=== PATIENT | female | born 1965 | race African-American/Black ===

== ENCOUNTER 2021-05-17 11:57 | Emergency (ER) | payer MEDICAID, OTHER ==
[~2021-05-17] VITALS: Ht 180.3 cm; Wt 85.5 kg
[2021-05-17] MEDS ORDERED: LOSA50TA37 PO (12:24)
[2021-05-17] MEDS ORDERED: OMEP20 PO (12:26)
[2021-05-17] MEDS ORDERED: CHLO3800 TP (12:26)
[2021-05-17 12:46] LABS: BASOPHILS % (AUTO) 0.6 % (0.0-2.0); EOSINOPHILS % (AUTO) 1.3 % (1.0-6.0); HEMATOCRIT 35.1 % (36-46); HEMOGLOBIN 11.8 g/dL (12.0-16.0); LYMPHOCYTES # (AUTO) 2.2 K/uL (1.0-4.8); LYMPHOCYTES % (AUTO) 21.9 % (22.0-44.0); MEAN CORPUSCULAR HEMOGLOBIN 28.8 pg (26.0-34.0); MEAN CORPUSCULAR HGB CONC 33.7 G/dL (31.0-37.0); MEAN CORPUSCULAR VOLUME 85 fL (80-100); MONOCYTES # (AUTO) 0.9 K/uL (0.1-1.0); MONOCYTES % (AUTO) 8.7 % (2.0-9.0); NEUTROPHILS # (AUTO) 6.7 K/uL (1.8-7.7); NEUTROPHILS % (AUTO) 67.5 % (40.0-70.0); PLATELET COUNT (AUTO) 341 K/uL (150-450); RED BLOOD CELL COUNT(AUTO) 4.11 MIL/uL (4.00-5.20)
[2021-05-17 13:02] LABS: ALANINE AMINOTRANSFERASE 25 U/L (12-78); ALBUMIN 2.9 g/dL (3.4-5.0); ALKALINE PHOSPHATASE 95 U/L (46-116); ANION GAP 8 mmol/L (8-16); ASPARTATE AMINOTRANSFERASE 45 U/L (15-37); BILIRUBIN,TOTAL 0.4 mg/dL (0.1-1.0); CARBON DIOXIDE 28 mmol/L (22-29); CHLORIDE 81 mmol/L (98-107); CREATININE 0.69 mg/dL (0.60-1.30); GLOMERULAR FILTR. RATE CALC > 60 mL/min (>60); GLUCOSE,RANDOM 106 mg/dL (70-110); TOTAL PROTEIN, SERUM 6.8 g/dL (6.4-8.2); UREA NITROGEN, BLOOD 5 mg/dL (7-18)
[2021-05-17 13:07] LABS: SODIUM SERUM 117 mmol/L (136-145)
[2021-05-17 13:08] LABS: POTASSIUM 2.1 mmol/L (3.5-5.1)
[2021-05-17 14:04] LABS: AMPHET/METH SCREEN,URINE NEGATIVE (NEGATIVE); BARBITURATE SCREEN, URINE NEGATIVE (NEGATIVE); BENZODIAZEPINES SCREEN,URINE NEGATIVE (NEGATIVE); CANNABINOID SCREEN,URINE NEGATIVE (NEGATIVE); COCAINE SCREEN,URINE NEGATIVE (NEGATIVE); METHADONE SCREEN, URINE NEGATIVE (NEGATIVE); OPIATE SCREEN,URINE NEGATIVE (NEGATIVE)
[2021-05-17 14:05] LABS: PHENCYCLIDINE SCREEN,URINE NEGATIVE (NEGATIVE)
[2021-05-17] MEDS ORDERED: IOHEXOL 350 MG/ML 100 ML VIAL ONE (14:18)
[2021-05-17] MEDS ORDERED: SODIUM CHLORIDE 0.9% 100 ML ONE (14:18)
[2021-05-17 14:29] LABS: ANION GAP 8 mmol/L (8-16); CALCIUM, TOTAL 9.1 mg/dL (8.8-10.5); CARBON DIOXIDE 27 mmol/L (22-29); CHLORIDE 84 mmol/L (98-107); CREATININE 0.64 mg/dL (0.60-1.30); GLOMERULAR FILTR. RATE CALC > 60 mL/min (>60); GLUCOSE,RANDOM 97 mg/dL (70-110); UREA NITROGEN, BLOOD 4 mg/dL (7-18)
[2021-05-17 14:36] LABS: SODIUM SERUM 119 mmol/L (136-145)
[2021-05-17 14:37] LABS: POTASSIUM 2.1 mmol/L (3.5-5.1)
[2021-05-17] MEDS ORDERED: SODIUM CHLORIDE 0.9% 1,000 ML IV ONE (14:45)
[2021-05-17] MEDS: POTASSIUM CHLORIDE 20 MEQ ER TABLET PO PRN ×2 (14:46→15:03)
[2021-05-17] MEDS: POTASSIUM CHL 10 MEQ/WATER 50 ML IV PRN ×4 (14:46→18:10)
[2021-05-17 15:15] LABS: COVID AG,FIA SOURCE NASOPHARYNGEAL
[2021-05-17] MEDS ORDERED: PIPERACILLIN/TAZO 3.375 GM/D5W 50 ML IV ONE (15:30)
[2021-05-17 21:48] VITALS: BP 130/71
== END 2021-05-17 21:58 | disposition short-term general hospital (02) ==
LOC: EMS 12:02
DX: L03.211 Cellulitis of face (principal); E87.6 Hypokalemia; E87.1 Hypo-osmolality and hyponatremia; R25.1 Tremor, unspecified; I10 Essential (primary) hypertension; F17.210 Nicotine dependence, cigarettes, uncomplicated; Z79.899 Other long term (current) drug therapy; Z20.822 Contact with and (suspected) exposure to COVID-19
CPT/HCPCS: 36415; 70487; 80048; 80053; 80307; 84132; 85025; 87426; 93005; 96365; 71045; 96366; 99291; G0480; J2543; J3480; J7030; J7050; Q9967

== ENCOUNTER 2021-06-10 17:28 | Emergency (ER) | payer OTHER ==
[~2021-06-10] VITALS: Ht 180.3 cm; Wt 77.3 kg
[~2021-06-10 17:28] MED LIST: CHLO3800 TP; LOSA-382 PO; OMEP20 PO
[2021-06-10 17:52] VITALS: BP 131/89
[2021-06-10] MEDS ORDERED: TRIAMCINOLONE 0.1% 15 GM CREAM TP ONE (21:00)
== END 2021-06-10 21:48 | disposition home or self-care (01) ==
LOC: EMS 17:31
DX: S30.864A Insect bite (nonvenomous) of vagina and vulva, initial encounter (principal); I10 Essential (primary) hypertension; N81.10 Cystocele, unspecified; F17.210 Nicotine dependence, cigarettes, uncomplicated; W57.XXXA Bitten or stung by nonvenomous insect and other nonvenomous arthropods, initial encounter; Y93.89 Activity, other specified; Y92.89 Other specified places as the place of occurrence of the external cause; Y99.8 Other external cause status
CPT/HCPCS: 99283

== ENCOUNTER 2021-11-09 08:50 | Emergency (ER) | payer OTHER ==
[~2021-11-09] VITALS: Ht 177.8 cm; Wt 70.5 kg
[2021-11-09] MEDS ORDERED: RINGERS SOLUTION,LACTATED 1,000 ML IV ONE (10:45)
[2021-11-09] MEDS ORDERED: ACETAMINOPHEN 500 MG TABLET PO ONE (11:15)
[2021-11-09 11:42] VITALS: BP 120/65
[2021-11-09 11:45] LABS: BASOPHILS % (AUTO) 0.3 % (0.0-2.0); EOSINOPHILS % (AUTO) 0.7 % (1.0-6.0); HEMATOCRIT 39.3 % (36-46); LYMPHOCYTES # (AUTO) 0.9 K/uL (1.0-4.8); LYMPHOCYTES % (AUTO) 11.6 % (22.0-44.0); MEAN CORPUSCULAR HEMOGLOBIN 29.2 pg (26.0-34.0); MEAN CORPUSCULAR HGB CONC 33.1 G/dL (31.0-37.0); MEAN CORPUSCULAR VOLUME 88 fL (80-100); MONOCYTES # (AUTO) 0.4 K/uL (0.1-1.0); MONOCYTES % (AUTO) 4.9 % (2.0-9.0); NEUTROPHILS # (AUTO) 6.2 K/uL (1.8-7.7); NEUTROPHILS % (AUTO) 82.5 % (40.0-70.0); PLATELET COUNT (AUTO) 249 K/uL (150-450); RED BLOOD CELL COUNT(AUTO) 4.45 MIL/uL (4.00-5.20); RED CELL DISTRIBUTION WIDTH 14.8 % (11.5-14.5)
[2021-11-09 11:55] LABS: ANION GAP 11 mmol/L (8-16); CALCIUM, TOTAL 9.1 mg/dL (8.8-10.5); CARBON DIOXIDE 25 mmol/L (22-29); CHLORIDE 103 mmol/L (98-107); CREATININE 0.98 mg/dL (0.60-1.30); GLOMERULAR FILTR. RATE CALC > 60 mL/min (>60); GLUCOSE,RANDOM 194 mg/dL (70-110); POTASSIUM 3.3 mmol/L (3.5-5.1); SODIUM SERUM 139 mmol/L (136-145); UREA NITROGEN, BLOOD 19 mg/dL (7-18)
[2021-11-09 12:09] LABS: HCG,QUANTITATIVE 2 mIU/mL (0-6)
== END 2021-11-09 12:45 | disposition home or self-care (01) ==
LOC: EMS 08:50
DX: T46.5X1A Poisoning by other antihypertensive drugs, accidental (unintentional), initial encounter (principal); E87.6 Hypokalemia; R42 Dizziness and giddiness; I10 Essential (primary) hypertension; F17.210 Nicotine dependence, cigarettes, uncomplicated; Z79.899 Other long term (current) drug therapy; Y92.89 Other specified places as the place of occurrence of the external cause
CPT/HCPCS: 36415; 80048; 84702; 85025; 93005; 96360; 99284; J7120

== ENCOUNTER 2022-01-08 19:21 | Emergency (ER) | payer OTHER ==
[~2022-01-08] VITALS: Ht 180.3 cm; Wt 77.3 kg
[2022-01-08] MEDS ORDERED: AMOX500C2 PO (22:32)
[2022-01-08] MEDS ORDERED: IBUP-2070 PO (22:32)
[2022-01-08 22:57] VITALS: BP 132/88
== END 2022-01-09 00:47 | disposition home or self-care (01) ==
LOC: EMS 19:21
DX: H66.001 Acute suppurative otitis media without spontaneous rupture of ear drum, right ear (principal); I10 Essential (primary) hypertension; F17.210 Nicotine dependence, cigarettes, uncomplicated; Z79.899 Other long term (current) drug therapy
CPT/HCPCS: 99283; Z7502

== ENCOUNTER 2022-01-16 14:22 | Emergency (ER) | payer OTHER ==
[~2022-01-16] VITALS: Ht 180.3 cm; Wt 77.3 kg
[~2022-01-16 14:22] MED LIST changes: +AMOX500C2 PO; +IBUP-2070 PO
[2022-01-16 14:31] VITALS: BP 122/60
[2022-01-16] MEDS ORDERED: PRAZ1 PO (14:40)
[2022-01-16] MEDS ORDERED: CARB1TAB33 PO (14:40)
[2022-01-16] MEDS ORDERED: LIDO1ADH83 TP (14:40)
[2022-01-16] MEDS ORDERED: HYDR25TA PO (14:40)
[2022-01-16] MEDS ORDERED: CLON-592 PO (14:40)
[2022-01-16] MEDS ORDERED: ALBU8.5H8 IH (14:40)
[2022-01-16] MEDS ORDERED: ARIP30TA PO (14:40)
[2022-01-16] MEDS ORDERED: FLUT15.812 NASAL (14:40)
== END 2022-01-16 16:06 | disposition left against medical advice (07) ==
LOC: EMS 14:22
DX: R20.0 Anesthesia of skin (principal); I10 Essential (primary) hypertension; F17.210 Nicotine dependence, cigarettes, uncomplicated; F41.9 Anxiety disorder, unspecified; R25.1 Tremor, unspecified
CPT/HCPCS: 99281; Z7502

== ENCOUNTER 2022-05-02 14:11 | Emergency (ER) | payer OTHER ==
[~2022-05-02] VITALS: Ht 180.3 cm; Wt 81.8 kg
[~2022-05-02 14:11] MED LIST changes: +ALBU8.5H8 IH; -AMOX500C2 PO; +ARIP30TA PO; +CARB1TAB33 PO; -CHLO3800 TP; +CLON-592 PO; +FLUT15.812 NASAL; +HYDR25TA PO
[2022-05-02 14:33] VITALS: BP 126/82
== END 2022-05-02 16:30 | disposition left against medical advice (07) ==
LOC: EMS 14:13
DX: R51.9 Headache, unspecified (principal); F10.20 Alcohol dependence, uncomplicated; F17.210 Nicotine dependence, cigarettes, uncomplicated; K05.00 Acute gingivitis, plaque induced; I10 Essential (primary) hypertension; R05.9 Cough, unspecified; Z87.448 Personal history of other diseases of urinary system
CPT/HCPCS: 99283

== ENCOUNTER 2022-05-16 14:58 | Emergency (ER) | payer OTHER ==
[~2022-05-16] VITALS: Ht 180.3 cm; Wt 81.8 kg
[2022-05-16 15:02] VITALS: BP 119/78
[2022-05-16 16:16] LABS: COVID AG,FIA SOURCE NASAL SWAB
[2022-05-16 16:39] LABS: INFLUENZA TYPE A NEGATIVE FOR TYPE A (NEGATIVE); INFLUENZA TYPE B NEGATIVE FOR TYPE B (NEGATIVE)
[2022-05-17] MEDS ORDERED: BENZ-70 PO (03:44)
== END 2022-05-16 17:07 | disposition left against medical advice (07) ==
LOC: EMS 14:59
DX: R05.9 Cough, unspecified (principal); Z20.822 Contact with and (suspected) exposure to COVID-19; Z53.21 Procedure and treatment not carried out due to patient leaving prior to being seen by health care provider
CPT/HCPCS: 87804

== ENCOUNTER 2022-05-17 02:09 | Emergency (ER) | payer OTHER ==
[~2022-05-17] VITALS: Ht 177.8 cm; Wt 88.6 kg
[~2022-05-17 02:09] MED LIST changes: -CLON-592 PO; -FLUT15.812 NASAL
[2022-05-17] MEDS ORDERED: BENZ-70 PO (03:44)
[2022-05-17 03:55] VITALS: BP 156/88
== END 2022-05-17 05:08 | disposition home or self-care (01) ==
LOC: EMS 02:10
DX: J20.9 Acute bronchitis, unspecified (principal); F10.20 Alcohol dependence, uncomplicated; F17.210 Nicotine dependence, cigarettes, uncomplicated; I10 Essential (primary) hypertension; J45.909 Unspecified asthma, uncomplicated
CPT/HCPCS: 71045; 99283

== ENCOUNTER 2022-06-20 20:53 | Emergency (ER) | payer OTHER ==
[~2022-06-20] VITALS: Ht 180.3 cm; Wt 86.4 kg
[~2022-06-20 20:53] MED LIST changes: +BENZ-70 PO; +IBUP-1492 PO; -IBUP-2070 PO
[2022-06-21] MEDS ORDERED: DiphenhydrAMINE HCL 25 MG CAPSULE PO ONE (00:45)
[2022-06-21 00:50] VITALS: BP 146/83
== END 2022-06-21 02:49 | disposition home or self-care (01) ==
LOC: EMS 20:54
DX: T78.40XA Allergy, unspecified, initial encounter (principal); J45.909 Unspecified asthma, uncomplicated; I10 Essential (primary) hypertension; F17.210 Nicotine dependence, cigarettes, uncomplicated; Z91.018 Allergy to other foods; X58.XXXA Exposure to other specified factors, initial encounter
CPT/HCPCS: 99282; Z7502; Z7610

== ENCOUNTER 2022-09-01 04:05 | Emergency (ER) | payer OTHER ==
[~2022-09-01] VITALS: Ht 180.3 cm; Wt 81.8 kg
[~2022-09-01 04:05] MED LIST changes: +BENZ-227 PO; -BENZ-70 PO
[2022-09-01 05:24] LABS: BASOPHILS % (AUTO) 0.5 % (0.0-2.0); EOSINOPHILS % (AUTO) 0.8 % (1.0-6.0); HEMATOCRIT 35.7 % (36-46); HEMOGLOBIN 12.2 g/dL (12.0-16.0); LYMPHOCYTES # (AUTO) 2.6 K/uL (1.0-4.8); LYMPHOCYTES % (AUTO) 34.2 % (22.0-44.0); MEAN CORPUSCULAR HEMOGLOBIN 29.9 pg (26.0-34.0); MEAN CORPUSCULAR VOLUME 88 fL (80-100); MONOCYTES # (AUTO) 0.6 K/uL (0.1-1.0); MONOCYTES % (AUTO) 7.7 % (2.0-9.0); NEUTROPHILS # (AUTO) 4.3 K/uL (1.8-7.7); NEUTROPHILS % (AUTO) 56.8 % (40.0-70.0); PLATELET COUNT (AUTO) 264 K/uL (150-450); RED BLOOD CELL COUNT(AUTO) 4.07 MIL/uL (4.00-5.20); RED CELL DISTRIBUTION WIDTH 15.1 % (11.5-14.5)
[2022-09-01] MEDS ORDERED: ACETAMINOPHEN 500 MG TABLET PO ONE (05:30)
[2022-09-01] MEDS ORDERED: IBUPROFEN 200 MG TABLET PO ONE (05:30)
[2022-09-01 05:34] LABS: ANION GAP 10 mmol/L (8-16); CALCIUM, TOTAL 9.1 mg/dL (8.8-10.5); CARBON DIOXIDE 26 mmol/L (22-29); CHLORIDE 105 mmol/L (98-107); CREATININE 0.66 mg/dL (0.60-1.30); GLOMERULAR FILTR. RATE CALC > 60 mL/min (>60); GLUCOSE,RANDOM 83 mg/dL (70-110); POTASSIUM 3.2 mmol/L (3.5-5.1); SODIUM SERUM 141 mmol/L (136-145); UREA NITROGEN, BLOOD 20 mg/dL (7-18)
[2022-09-01 05:43] LABS: ALANINE AMINOTRANSFERASE 25 U/L (12-78); ALBUMIN 3.7 g/dL (3.4-5.0); ALKALINE PHOSPHATASE 70 U/L (46-116); ASPARTATE AMINOTRANSFERASE 42 U/L (15-37); BILIRUBIN,TOTAL 0.4 mg/dL (0.1-1.0); LIPASE 103 U/L (73-393); TOTAL PROTEIN, SERUM 7.3 g/dL (6.4-8.2)
[2022-09-01] MEDS ORDERED: POTASSIUM CHLORIDE 20 MEQ ER TABLET PO ONE (06:30)
[2022-09-01 09:02] VITALS: BP 131/84
== END 2022-09-01 09:59 | disposition home or self-care (01) ==
LOC: EMS 04:06
DX: M54.50 Low back pain, unspecified (principal); F41.9 Anxiety disorder, unspecified; E87.6 Hypokalemia; J45.909 Unspecified asthma, uncomplicated; I10 Essential (primary) hypertension; F17.210 Nicotine dependence, cigarettes, uncomplicated; Z91.018 Allergy to other foods
CPT/HCPCS: 99284; 80053; 83690; 84484; 85025; 36415; 72100; G0480

== ENCOUNTER 2022-09-14 13:55 | Emergency (ER) | payer OTHER ==
[~2022-09-14] VITALS: Ht 172.7 cm; Wt 63.6 kg
[2022-09-14 14:15] VITALS: BP 153/84
== END 2022-09-14 15:09 | disposition left against medical advice (07) ==
LOC: EMS 13:55
DX: Z53.21 Procedure and treatment not carried out due to patient leaving prior to being seen by health care provider (principal)
CPT/HCPCS: 99281; Z7502

== ENCOUNTER 2022-10-15 23:56 | Emergency (ER) | payer OTHER ==
[~2022-10-15] VITALS: Ht 180.3 cm; Wt 81.8 kg
[2022-10-16 00:44] VITALS: BP 129/74
[2022-10-16 00:55] LABS: BASOPHILS % (AUTO) 0.5 % (0.0-2.0); EOSINOPHILS % (AUTO) 1.1 % (1.0-6.0); HEMATOCRIT 41.1 % (36-46); HEMOGLOBIN 13.6 g/dL (12.0-16.0); LYMPHOCYTES # (AUTO) 1.6 K/uL (1.0-4.8); LYMPHOCYTES % (AUTO) 24.2 % (22.0-44.0); MEAN CORPUSCULAR HEMOGLOBIN 30.1 pg (26.0-34.0); MEAN CORPUSCULAR HGB CONC 33.1 G/dL (31.0-37.0); MEAN CORPUSCULAR VOLUME 91 fL (80-100); MONOCYTES # (AUTO) 0.4 K/uL (0.1-1.0); MONOCYTES % (AUTO) 5.7 % (2.0-9.0); NEUTROPHILS # (AUTO) 4.5 K/uL (1.8-7.7); NEUTROPHILS % (AUTO) 68.5 % (40.0-70.0); PLATELET COUNT (AUTO) 285 K/uL (150-450); RED BLOOD CELL COUNT(AUTO) 4.52 MIL/uL (4.00-5.20); RED CELL DISTRIBUTION WIDTH 15.1 % (11.5-14.5)
[2022-10-16 01:04] LABS: ANION GAP 8 mmol/L (8-16); CALCIUM, TOTAL 9.4 mg/dL (8.8-10.5); CARBON DIOXIDE 28 mmol/L (22-29); CHLORIDE 100 mmol/L (98-107); GLOMERULAR FILTR. RATE CALC > 60 mL/min (>60); GLUCOSE,RANDOM 100 mg/dL (70-110); POTASSIUM 3.5 mmol/L (3.5-5.1); SODIUM SERUM 136 mmol/L (136-145)
[2022-10-16 01:25] LABS: B-TYPE NATRIURETIC PEPTIDE 12 pg/mL (0-100)
[2022-10-16 01:28] LABS: ALANINE AMINOTRANSFERASE 22 U/L (12-78); ALBUMIN 3.6 g/dL (3.4-5.0); ALKALINE PHOSPHATASE 76 U/L (46-116); ASPARTATE AMINOTRANSFERASE 22 U/L (15-37); BILIRUBIN,TOTAL 0.3 mg/dL (0.1-1.0); CREATINE KINASE, TOTAL ONLY 103 U/L (26-192); TOTAL PROTEIN, SERUM 8.1 g/dL (6.4-8.2)
== END 2022-10-16 02:18 | disposition home or self-care (01) ==
LOC: EMS 23:57
DX: R07.89 Other chest pain (principal); J45.909 Unspecified asthma, uncomplicated; F41.9 Anxiety disorder, unspecified; F32.A Depression, unspecified; F20.9 Schizophrenia, unspecified; I10 Essential (primary) hypertension; G45.9 Transient cerebral ischemic attack, unspecified; F17.210 Nicotine dependence, cigarettes, uncomplicated; Z90.710 Acquired absence of both cervix and uterus; Z88.8 Allergy status to other drugs, medicaments and biological substances
CPT/HCPCS: 71045; 80053; 82550; 82962; 83880; 84484; 85025; 93005; 99285

== ENCOUNTER 2024-09-07 01:03 | Emergency (ER) | payer OTHER ==
[~2024-09-07] VITALS: Ht 170.2 cm; Wt 68.2 kg
[~2024-09-07 01:03] MED LIST changes: -BENZ-227 PO; -IBUP-1492 PO; +OMEP-148 PO; -OMEP20 PO
[2024-09-07 01:04] VITALS: BP 155/97; PULSE 74; RESP 20; TEMP 98.8; O2SAT 99
[2024-09-07 01:29] LABS: BASOPHILS % (AUTO) 0.9 % (0.0-2.0); EOSINOPHILS % (AUTO) 0.8 % (1.0-6.0); HEMATOCRIT 34.3 % (36-46); HEMOGLOBIN 11.2 g/dL (12.0-16.0); LYMPHOCYTES # (AUTO) 1.9 K/uL (1.0-4.8); LYMPHOCYTES % (AUTO) 26.3 % (22.0-44.0); MEAN CORPUSCULAR HEMOGLOBIN 28.5 pg (26.0-34.0); MEAN CORPUSCULAR HGB CONC 32.8 G/dL (31.0-37.0); MEAN CORPUSCULAR VOLUME 87 fL (80-100); MONOCYTES # (AUTO) 0.7 K/uL (0.1-1.0); MONOCYTES % (AUTO) 9.3 % (2.0-9.0); NEUTROPHILS # (AUTO) 4.6 K/uL (1.8-7.7); NEUTROPHILS % (AUTO) 62.7 % (40.0-70.0); PLATELET COUNT (AUTO) 284 K/uL (150-450); RED BLOOD CELL COUNT(AUTO) 3.95 MIL/uL (4.00-5.20); RED CELL DISTRIBUTION WIDTH 15.3 % (11.5-14.5); WHITE BLOOD COUNT (AUTO) 7.4 K/uL (4.5-11.0)
[2024-09-07] MEDS: AMOX TR/POT CLAV 875 MG/125 MG TABLET PO ONE (01:31)
[2024-09-07] MEDS: ACETAMINOPHEN 500 MG TABLET PO ONE (01:32)
[2024-09-07 01:43] LABS: ANION GAP 6 mmol/L (8-16); CALCIUM, TOTAL 9.1 mg/dL (8.8-10.5); CARBON DIOXIDE 27 mmol/L (22-29); CHLORIDE 106 mmol/L (98-107); CREATININE 0.79 mg/dL (0.60-1.30); GLOMERULAR FILTR. RATE CALC > 60 mL/min (>60); GLUCOSE,RANDOM 111 mg/dL (70-110); POTASSIUM 3.5 mmol/L (3.5-5.1); SODIUM SERUM 139 mmol/L (136-145); UREA NITROGEN, BLOOD 24 mg/dL (7-18)
[2024-09-07 01:48] LABS: ALBUMIN 2.9 g/dL (3.4-5.0); BILIRUBIN,DIRECT 0.1 mg/dL (0.00-0.20); BILIRUBIN,TOTAL 0.2 mg/dL (0.1-1.0); TOTAL PROTEIN, SERUM 6.8 g/dL (6.4-8.2)
[2024-09-07 01:53] LABS: TROPONIN I-HIGH SENSITIVITY 10 ng/L (<51)
[2024-09-07] MEDS ORDERED: AMOX-457 PO (01:56)
== END 2024-09-07 02:40 | disposition home or self-care (01) ==
LOC: EMS 01:03
DX: R07.2 Precordial pain (principal); H66.93 Otitis media, unspecified, bilateral; J45.909 Unspecified asthma, uncomplicated; I10 Essential (primary) hypertension; F20.9 Schizophrenia, unspecified; F32.A Depression, unspecified; F41.9 Anxiety disorder, unspecified; Z91.018 Allergy to other foods; Z90.710 Acquired absence of both cervix and uterus; Z79.899 Other long term (current) drug therapy
CPT/HCPCS: 71045; 80048; 80076; 84484; 85025; 93005; 99285; 36415-L1; 36415-TC

== ENCOUNTER 2024-11-03 22:54 | Emergency (ER) | payer OTHER ==
[~2024-11-03] VITALS: Ht 180.3 cm; Wt 86.4 kg
[~2024-11-03 22:54] MED LIST changes: +AMOX-457 PO
[2024-11-03 23:17] VITALS: BP 140/73; PULSE 104; RESP 24; TEMP 98.6; O2SAT 98
[2024-11-04] MEDS: HYDROGEN PEROXIDE 118 ML SOLUTION TP ONE (02:33)
[2024-11-04] MEDS: TraMADol HCL 50 MG TABLET PO ONE (02:33)
[2024-11-04] MEDS ORDERED: AMOX250C4 PO (03:38)
== END 2024-11-04 04:08 | disposition home or self-care (01) ==
LOC: EMS 22:55
DX: H61.21 Impacted cerumen, right ear (principal); F41.9 Anxiety disorder, unspecified; J45.909 Unspecified asthma, uncomplicated; F20.9 Schizophrenia, unspecified; F32.A Depression, unspecified; I10 Essential (primary) hypertension; Z86.73 Personal history of transient ischemic attack (TIA), and cerebral infarction without residual deficits; Z90.710 Acquired absence of both cervix and uterus; F17.210 Nicotine dependence, cigarettes, uncomplicated; Z79.899 Other long term (current) drug therapy; Z91.018 Allergy to other foods
CPT/HCPCS: 69209; 99283

== ENCOUNTER 2024-11-07 22:57 | Emergency (ER) | payer OTHER ==
[~2024-11-07] VITALS: Ht 180.3 cm; Wt 87.3 kg
[~2024-11-07 22:57] MED LIST changes: +AMOX250C4 PO
[2024-11-07 23:25] VITALS: TEMP 97.7
[2024-11-08] MEDS: diazePAM 5 MG TABLET PO ONE (01:30)
[2024-11-08] MEDS: ACETAMINOPHEN 500 MG TABLET PO ONE (01:30)
[2024-11-08] MEDS: KETOROLAC TROMETHAMINE 30 MG/ML VIAL IM ONE (01:31)
[2024-11-08 05:00] VITALS: BP 131/81; PULSE 92; RESP 16; O2SAT 98
[2024-11-08] MEDS ORDERED: METH-812 PO (05:46)
== END 2024-11-08 06:09 | disposition home or self-care (01) ==
LOC: EMS 22:57
DX: S20.229A Contusion of unspecified back wall of thorax, initial encounter (principal); F41.9 Anxiety disorder, unspecified; J45.909 Unspecified asthma, uncomplicated; F32.A Depression, unspecified; F17.210 Nicotine dependence, cigarettes, uncomplicated; I10 Essential (primary) hypertension; F20.9 Schizophrenia, unspecified; Z86.73 Personal history of transient ischemic attack (TIA), and cerebral infarction without residual deficits; Z90.710 Acquired absence of both cervix and uterus; Z79.899 Other long term (current) drug therapy; Z91.018 Allergy to other foods; X58.XXXA Exposure to other specified factors, initial encounter; Y93.89 Activity, other specified; Y92.89 Other specified places as the place of occurrence of the external cause; Y99.8 Other external cause status
CPT/HCPCS: 99283; 72100; 96372; J1885

== ENCOUNTER 2024-11-11 01:16 | Emergency (ER) | payer OTHER ==
[~2024-11-11] VITALS: Ht 180.3 cm; Wt 87.0 kg
[~2024-11-11 01:16] MED LIST changes: +METH-812 PO
[2024-11-11 01:41] VITALS: TEMP 97.2
[2024-11-11] MEDS: LIDOCAINE 5% TRANSDERMAL PATCH TD ONE (01:55)
[2024-11-11] MEDS: ACETAMINOPHEN 500 MG TABLET PO ONE (01:56)
[2024-11-11 02:38] LABS: COVID AG,FIA SOURCE NASAL SWAB
[2024-11-11 03:00] LABS: SARS-COV2 (COVID) ANTIGEN,FIA Negative (Negative)
[2024-11-11 04:03] VITALS: BP 144/59; PULSE 82; RESP 15; O2SAT 99
[2024-11-11 05:06] LABS: PH,URINE DRUG SCREEN 5.5 (5.0-8.0)
[2024-11-11] MEDS: OLANZapine 10 MG TABLET PO ONE (05:37)
[2024-11-11 06:59] LABS: ALCOHOL, URINE DRUG SCREEN NEGATIVE (NEGATIVE); AMPHET/METH SCREEN,URINE POSITIVE (NEGATIVE); BARBITURATE SCREEN, URINE NEGATIVE (NEGATIVE); BENZODIAZEPINES SCREEN,URINE POSITIVE (NEGATIVE); CANNABINOID SCREEN,URINE NEGATIVE (NEGATIVE); COCAINE SCREEN,URINE NEGATIVE (NEGATIVE); METHADONE SCREEN, URINE NEGATIVE (NEGATIVE); OPIATE SCREEN,URINE NEGATIVE (NEGATIVE); PHENCYCLIDINE SCREEN,URINE NEGATIVE (NEGATIVE)
== END 2024-11-11 05:42 | disposition home or self-care (01) ==
LOC: EMS 04:23
DX: M54.50 Low back pain, unspecified (principal); G89.29 Other chronic pain; F20.9 Schizophrenia, unspecified; F41.9 Anxiety disorder, unspecified; J45.909 Unspecified asthma, uncomplicated; F32.A Depression, unspecified; I10 Essential (primary) hypertension; F17.210 Nicotine dependence, cigarettes, uncomplicated; Z86.73 Personal history of transient ischemic attack (TIA), and cerebral infarction without residual deficits; Z90.710 Acquired absence of both cervix and uterus; Z91.018 Allergy to other foods; Z79.899 Other long term (current) drug therapy; Z20.822 Contact with and (suspected) exposure to COVID-19
CPT/HCPCS: 80307; 99284

== ENCOUNTER 2024-12-06 14:25 | Emergency (ER) | payer OTHER | END 2024-12-06 15:02 | disposition left against medical advice (07) | LOC: EMS 14:28 | DX: H92.09 Otalgia, unspecified ear (principal); Z53.21 Procedure and treatment not carried out due to patient leaving prior to being seen by health care provider ==

== ENCOUNTER → 2024-12-06 | Emergency (ER) | payer OTHER ==
[~2024-12-06] VITALS: Ht 180.3 cm; Wt 86.4 kg
[2024-12-06 17:58] VITALS: BP 165/98; PULSE 94; RESP 18; TEMP 98.2; O2SAT 99
== END | disposition left against medical advice (07) ==
LOC: EMS 17:17
DX: H92.03 Otalgia, bilateral (principal); Z53.21 Procedure and treatment not carried out due to patient leaving prior to being seen by health care provider

== ENCOUNTER 2024-12-07 00:06 | Emergency (ER) | payer OTHER ==
[~2024-12-07] VITALS: Ht 175.3 cm; Wt 100.0 kg
[2024-12-07 00:15] VITALS: TEMP 97.8
[2024-12-07 00:40] VITALS: BP 133/78; PULSE 71; RESP 18; O2SAT 98
== END 2024-12-07 01:29 | disposition home or self-care (01) ==
LOC: EMS 00:10
DX: H65.93 Unspecified nonsuppurative otitis media, bilateral (principal); F41.9 Anxiety disorder, unspecified; J45.909 Unspecified asthma, uncomplicated; I10 Essential (primary) hypertension; F32.A Depression, unspecified; F20.9 Schizophrenia, unspecified; F17.210 Nicotine dependence, cigarettes, uncomplicated; Z86.73 Personal history of transient ischemic attack (TIA), and cerebral infarction without residual deficits; Z90.710 Acquired absence of both cervix and uterus; Z79.899 Other long term (current) drug therapy; Z91.018 Allergy to other foods
CPT/HCPCS: 99283; Z7502

== ENCOUNTER 2024-12-31 23:12 | Emergency (ER) | payer OTHER | END 2024-12-31 23:26 | disposition left against medical advice (07) | LOC: EMS 23:13 | DX: R51.9 Headache, unspecified (principal); Z53.21 Procedure and treatment not carried out due to patient leaving prior to being seen by health care provider ==

== ENCOUNTER 2025-01-12 22:44 | Emergency (ER) | payer OTHER ==
[~2025-01-12] VITALS: Ht 180.3 cm; Wt 81.8 kg
[2025-01-12 22:47] VITALS: BP 147/82; PULSE 86; RESP 16; TEMP 97.7; O2SAT 99
[2025-01-13] MEDS: IBUPROFEN 400 MG TABLET PO ONE (01:00)
[2025-01-13] MEDS: ACETAMINOPHEN 500 MG TABLET PO ONE (01:00)
[2025-01-13] MEDS ORDERED: HYDR25TA PO (02:22)
[2025-01-13] MEDS ORDERED: CARB1TAB33 PO (02:22)
[2025-01-13] MEDS ORDERED: LOSA-382 PO (02:22)
[2025-01-13] MEDS ORDERED: ARIP30TA PO (02:22)
== END 2025-01-13 02:54 | disposition home or self-care (01) ==
LOC: EMS 22:44
DX: R51.9 Headache, unspecified (principal); I10 Essential (primary) hypertension; J45.909 Unspecified asthma, uncomplicated; Z76.0 Encounter for issue of repeat prescription; F41.9 Anxiety disorder, unspecified; F20.9 Schizophrenia, unspecified; F32.A Depression, unspecified; F17.210 Nicotine dependence, cigarettes, uncomplicated; Z91.018 Allergy to other foods; Z86.73 Personal history of transient ischemic attack (TIA), and cerebral infarction without residual deficits; Z90.710 Acquired absence of both cervix and uterus; Z79.899 Other long term (current) drug therapy
CPT/HCPCS: 99283